=== PATIENT | male | born 1960 | race African-American/Black ===

== ENCOUNTER 2019-12-27 05:32 | Emergency (ER) | payer OTHER ==
[~2019-12-27] VITALS: Ht 180.3 cm; Wt 108.9 kg
--- NOTE | 2019-12-27 05:32 | NUR ---
PT BIB SELF C/O SI WITH PLAN TO JUMP INTO TRAFFIC. DENIES HI, PT IS AAOX3, NOT IN RESPIRATORY DISTRESS, HOOKED TO MONITOR, KEPT RESTED AND COMFORTABLE, WILL CONTINUE TO MONITOR, KEPT RESTED AND COMFORTABLE.
--- NOTE | 2019-12-27 05:40 | NUR ---
URINE SPECIMEN COLLECTED AND SENT TO LAB.
--- NOTE | 2019-12-27 05:50 | NUR ---
SEEN AND EXAMINED BY .
--- NOTE | 2019-12-27 06:00 | NUR ---
ER PHLEB AT BEDSIDE FOR EVAL.
[2019-12-27 06:04] LABS: BILIRUBIN,URINE Negative (NEGATIVE); BLOOD, URINE Trace-lysed Ery/uL (NEGATIVE); COLOR,URINE Yellow (YELLOW); KETONES,URINE Negative (NEGATIVE); LEUKOCYTE ESTERASE ,URINE Small (NEGATIVE); NITRITE, URINE Positive (NEGATIVE); PH,URINE 5.5 (5.0-8.0); PROTEIN,URINE Negative (NEGATIVE); UGLUCOSE Negative (NEGATIVE); UROBILINOGEN,URINE 0.2 EU/dL (0.2)
[2019-12-27 06:13] LABS: BASOPHILS # (AUTO) 0.1 /CMM (0.0-0.2); BASOPHILS % (AUTO) 1.3 % (0.0-2.0); EOSINOPHILS % (AUTO) 3.9 % (0.0-6.0); HEMATOCRIT 42 % (39-51); HEMOGLOBIN 13.8 g/dL (13.5-17.5); LYMPHOCYTES # (AUTO) 1.4 /CMM (0.8-4.8); LYMPHOCYTES % (AUTO) 25.5 % (20.0-44.0); MEAN CORPUSCULAR HGB CONC 33 g/dl (31.0-36.0); MEAN CORPUSCULAR VOLUME 87 fL (80-96); MONOCYTES # (AUTO) 0.6 /CMM (0.1-1.30); MONOCYTES % (AUTO) 10.1 % (2.0-12.0); NEUTROPHILS # (AUTO) 3.3 /CMM (1.8-8.9); NEUTROPHILS % (AUTO) 59.2 % (43.0-81.0); PLATELET COUNT (AUTO) 198 /CMM (150-450); RED BLOOD CELL COUNT(AUTO) 4.82 MIL/uL (4.5-6.0); WHITE BLOOD COUNT (AUTO) 5.6 K/uL (4.3-11.0)
[2019-12-27 06:17] LABS: CALCIUM, SERUM 8.9 mg/dL (8.5-10.1); CARBON DIOXIDE 29 mmol/L (21-32); CHLORIDE 106 mmol/L (98-107); CREATININE 1.1 mg/dL (0.6-1.3); GLUCOSE 85 mg/dL (74-106); POTASSIUM 4.2 mmol/L (3.5-5.1); SODIUM SERUM 141 mmol/L (136-145); UREA NITROGEN, BLOOD 17 mg/dL (7-18)
--- NOTE | 2019-12-27 06:18 | NUR ---
DR. Yamini QUEVEDO AT BEDSIDE TO EVAL PT.
[2019-12-27 06:33] LABS: ALANINE AMINOTRANSFERASE 22 U/L (12-78); ALBUMIN 3.4 g/dL (3.4-5.0); ALCOHOL, BLOOD < 3 mg/dL (0-0); ALKALINE PHOSPHATASE 81 U/L (46-116); ASPARTATE AMINOTRANSFERASE 23 U/L (15-37); BILIRUBIN,DIRECT 0.1 mg/dL (0.0-0.2); BILIRUBIN,TOTAL 0.3 mg/dL (0.2-1.0); SALICYLATE 1.3 mg/dL (2.8-20.0); TOTAL PROTEIN, SERUM 7.6 g/dL (6.4-8.2)
[2019-12-27 06:34] LABS: BACTERIA,URINE Many /HPF (None Seen); WBC,URINE 81-100 /HPF (0-3)
[2019-12-27 06:34] LABS: ACETAMINOPHEN 0 ug/ml (10-30)
[2019-12-27 06:35] LABS: SQUAMOUS EPITHELIAL CELL,UR Few /HPF (None Seen)
[2019-12-27 06:40] LABS: APPEARANCE,URINE CLOUDY (CLEAR)
--- NOTE | 2019-12-27 08:17 | NUR ---
CALLED [facility] FOR EVAL.
--- NOTE | 2019-12-27 08:36 | NUR ---
TOWEL STRETCHER spoke with REYMUNDO Pacheco in ED and informed him she will initiate the voluntary psychiatric admission for [facility]. TOWEL STRETCHER contacted Misael at [facility] for voluntary psychiatric admission per pt's request. Misael informed TOWEL STRETCHER they will have a bed for the pt and to fax clinicals to intake. Clinicals faxed to [facility] intake dept.
[2019-12-27] MEDS ORDERED: CEPHALEXIN MONOHYDRATE 500 MG CAPSULE PO SCH (09:00)
[2019-12-27] MEDS ORDERED: CEPHALEXIN MONOHYDRATE 500 MG CAPSULE PO ONE (09:15)
--- NOTE | 2019-12-27 09:43 | NUR ---
PROCUREMENT COORDINATOR contacted Intake and spoke with Bea, who informed SW that she received the clinicals and are currently being reviewed.
--- NOTE | 2019-12-27 10:34 | NUR ---
JANNET received a call from Antelmo at [facility] intake stating pt has been accepted at [facility]. Accepting Dr. Ness and Sr. Meyers. Report needs to be called at 12PM to NAIN Cruz at [facility] . JANNET updated REYMUNDO Pacheco in ED.
--- NOTE | 2019-12-27 13:40 | NUR ---
CALLED [id number] FOR TRANSPORT TO [facility] [place]. [facility] IS THE [facility] [employer] WITH A 40 MINUTE ETA. TRIP NUMBER [id number].
--- NOTE | 2019-12-27 14:54 | NUR ---
TRANPORTED TO [facility] IN STABLE CONDITION.
[2019-12-27 14:55] VITALS: BP 146/73
== END 2019-12-27 15:00 ==
LOC: ER 05:32
DX: F19.951 Other psychoactive substance use, unspecified with psychoactive substance-induced psychotic disorder with hallucinations (principal); F20.9 Schizophrenia, unspecified; R45.851 Suicidal ideations; N39.0 Urinary tract infection, site not specified; F12.10 Cannabis abuse, uncomplicated; F14.10 Cocaine abuse, uncomplicated; Z88.4 Allergy status to anesthetic agent; Z88.7 Allergy status to serum and vaccine; Z88.8 Allergy status to other drugs, medicaments and biological substances
CPT/HCPCS: 36415; 80048; 80076; 80305; 80307; 80329; 81001; 85025; 87077; 87086; 87186; 99285; G0480; 81000-TC

== ENCOUNTER 2020-01-04 06:21 | Emergency (ER) | payer OTHER ==
[~2020-01-04] VITALS: Ht 180.3 cm; Wt 127.0 kg
--- NOTE | 2020-01-04 06:36 | NUR ---
PT BIB SELF C/O BILATERAL KNEE PAIN FOR 2 DAYS, PT IS AAOX4, NOT IN RESPIRATORY DISTRESS, HOOKED TO MONITOR, KEPT RESTED AND COMFORTABLE, WILL CONTINUE TO MONITOR. AWAITING ER MD FOR EVAL.
--- NOTE | 2020-01-04 06:48 | NUR ---
SEEN AND EXAMINED BY , PT VERBALIZED HE IS SUICIDAL "I WANT TO JUMP OF THE BUILDING"
[2020-01-04] MEDS ORDERED: KETOROLAC TROMETHAMINE 15 MG/ML VIAL ONE (07:00)
[2020-01-04] MEDS ORDERED: KETOROLAC TROMETHAMINE INJ 30 MG/ML VIAL IM ONE (07:00)
--- NOTE | 2020-01-04 07:04 | NUR ---
THERAPIST SPEECH AT BEDSIDE FOR LABS
--- NOTE | 2020-01-04 07:22 | NUR ---
AWAITING URINE SAMPLE.
[2020-01-04 07:24] LABS: BASOPHILS # (AUTO) 0.1 /CMM (0.0-0.2); BASOPHILS % (AUTO) 1.2 % (0.0-2.0); HEMATOCRIT 42 % (39-51); HEMOGLOBIN 14.1 g/dL (13.5-17.5); LYMPHOCYTES # (AUTO) 1.3 /CMM (0.8-4.8); LYMPHOCYTES % (AUTO) 27.1 % (20.0-44.0); MEAN CORPUSCULAR HGB CONC 33 g/dl (31.0-36.0); MEAN CORPUSCULAR VOLUME 86 fL (80-96); MONOCYTES # (AUTO) 0.6 /CMM (0.1-1.30); MONOCYTES % (AUTO) 11.8 % (2.0-12.0); NEUTROPHILS # (AUTO) 2.6 /CMM (1.8-8.9); NEUTROPHILS % (AUTO) 54.9 % (43.0-81.0); PLATELET COUNT (AUTO) 168 /CMM (150-450); WHITE BLOOD COUNT (AUTO) 4.8 K/uL (4.3-11.0)
--- NOTE | 2020-01-04 07:24 | NUR ---
URINE SENT TO LAB
[2020-01-04 07:37] LABS: CARBON DIOXIDE 27 mmol/L (21-32); CHLORIDE 104 mmol/L (98-107); CREATININE 1.3 mg/dL (0.6-1.3); GLUCOSE 91 mg/dL (74-106); POTASSIUM 4.1 mmol/L (3.5-5.1); SODIUM SERUM 139 mmol/L (136-145); UREA NITROGEN, BLOOD 26 mg/dL (7-18)
[2020-01-04 07:42] LABS: ALANINE AMINOTRANSFERASE 27 U/L (12-78); ALBUMIN 3.5 g/dL (3.4-5.0); ALCOHOL, BLOOD < 3 mg/dL (0-0); ALKALINE PHOSPHATASE 92 U/L (46-116); ASPARTATE AMINOTRANSFERASE 21 U/L (15-37); BILIRUBIN,DIRECT 0.1 mg/dL (0.0-0.2); BILIRUBIN,TOTAL 0.5 mg/dL (0.2-1.0); TOTAL PROTEIN, SERUM 7.8 g/dL (6.4-8.2)
[2020-01-04 07:49] LABS: SALICYLATE 1.6 mg/dL (2.8-20.0)
[2020-01-04 07:50] LABS: ACETAMINOPHEN 0 ug/ml (10-30)
--- NOTE | 2020-01-04 08:23 | NUR ---
PT AEWAKE GIVEN BREAKFAST TRAY VSS
[2020-01-04 09:03] LABS: APPEARANCE,URINE Clear (CLEAR); BILIRUBIN,URINE Negative (NEGATIVE); BLOOD, URINE Negative Ery/uL (NEGATIVE); COLOR,URINE Yellow (YELLOW); KETONES,URINE Negative (NEGATIVE); LEUKOCYTE ESTERASE ,URINE Small (NEGATIVE); NITRITE, URINE Positive (NEGATIVE); PH,URINE 5.5 (5.0-8.0); PROTEIN,URINE Negative (NEGATIVE); UGLUCOSE Negative (NEGATIVE); UROBILINOGEN,URINE 0.2 EU/dL (0.2)
[2020-01-04 09:13] LABS: RBC,URINE NONE SEEN /HPF (0-2)
[2020-01-04 09:14] LABS: BACTERIA,URINE 1+ /HPF (None Seen); SQUAMOUS EPITHELIAL CELL,UR Few /HPF (None Seen)
--- NOTE | 2020-01-04 09:44 | NUR ---
jessica fields called for eval
--- NOTE | 2020-01-04 10:58 | NUR ---
PT CALM QUITE PLEASANT HELPED SHAVE AND CLEAN UP . WATCHING TV
[2020-01-04] MEDS ORDERED: ARIPIPRAZOLE 5 MG TABLET PO ONE (11:30)
--- NOTE | 2020-01-04 12:21 | NUR ---
PT TOLERATED LUNCH WATCHING TV TOOK MED ABIFIY 5 MG PO NOW
--- NOTE | 2020-01-04 14:56 | NUR ---
RECEIVED CALL FROM [facility] INTAKE, AWAITING REVIEW FROM NURSING SUP
--- NOTE | 2020-01-04 15:43 | NUR ---
TRANSFER INFO: PT ACCEPTED BY DR TRIPATHI AT [facility], ROOM 616-A, RN PARAG GAVE REPORT
--- NOTE | 2020-01-04 15:54 | NUR ---
CALLED [id number], [place] ETA 1606 MIN RES#[id number]
--- NOTE | 2020-01-04 16:23 | NUR ---
GAVE REPORT PT STABLE FOR TRANSFER TO [facility]
[2020-01-04 16:24] VITALS: BP 146/78
== END 2020-01-04 16:25 ==
LOC: ER 06:23
DX: F16.959 Hallucinogen use, unspecified with hallucinogen-induced psychotic disorder, unspecified (principal); R44.0 Auditory hallucinations; R45.851 Suicidal ideations; N39.0 Urinary tract infection, site not specified; F14.10 Cocaine abuse, uncomplicated; F15.10 Other stimulant abuse, uncomplicated; M10.9 Gout, unspecified; F43.10 Post-traumatic stress disorder, unspecified; F17.200 Nicotine dependence, unspecified, uncomplicated; Z88.8 Allergy status to other drugs, medicaments and biological substances; Z59.0 Homelessness
CPT/HCPCS: 36415; 80048; 80076; 80305; 80307; 80329; 81001; 85025; 87086; 96372; 99285; G0480; J1885; 81000-TC; 87186-TC